=== PATIENT | female | born 1975 | race Two or more races ===

== ENCOUNTER 2020-12-17 20:13 | Emergency (ER) | payer SELFPAY ==
[~2020-12-17] VITALS: Ht 157.5 cm; Wt 70.0 kg
[2020-12-17 21:51] VITALS: BP 160/89
--- NOTE | 2020-12-17 21:55 | PHYS DOC ---
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 She is unsure about loss of consciousness but reports that she does not know what happened. She endorses a laceration on the back of her head from the trauma. She also endorses some anterior neck pain, jaw pain on both sides. Her Tdap is not up-to-date. She does not take any blood thinning medications. She denies any symptoms prior to the fall and reports that she missed a step and it was 100% mechanical. The patient denies nausea, vomiting, fever, chills, chest pain, shortness of breath, abdominal pain, urinary symptoms, cough, or any other complaints. Family is at the bedside and is translating. Review of Systems: Review of Systems: Review of systems is otherwise negative except for what was mentioned in the HPI Heart Score: C/O Chest Pain: No Allergies: Allergies: Allergies Coded Allergies Type Severity Reaction Last Updated Verified No Known Drug Allergies 12/17/20 No Physical Exam: PE: Constitutional: No acute distress, non-toxic appearance. HENT: 4 cm laceration to the midline posterior occiput, hemostatic. Bilateral mandibular tenderness. Eyes: PERRLA, EOMI, conjunctiva normal, no discharge. Neck: Normal range of motion, supple, no stridor. No C spinal tenderness Cardiovascular: Heart rate regular rhythm. 2+ radial pulses Lungs & Thorax: No respiratory distress, symmetrical expansion. Abdomen: Soft, no tenderness Skin: Warm, dry. Extremities: No tenderness, no cyanosis, ROM intact, no edema. Neurologic: Alert and oriented X 3, normal motor function, normal sensory function, no focal deficits noted. Non ataxic gait. GCS 15. Psychologic: Affect normal, judgment normal, mood normal. Current Patient Data: Vital Signs: Vital Signs Date Time Temp Pulse Resp B/P (MAP) Pulse Ox O2 Delivery O2 Flow Rate FiO2 12/17/20 21:51 98.9 78 16 160/89 (112) 98 Room Air 98.9 Radiology/Procedures: Radiology/Procedures: Laceration Repair Procedure Time: 2220 Confirmed: Patient, procedure, side, and site correct. Consent: Patient, has given verbal consent. Description/ repair Laceration: Location: Opposite. 4 cm in length. Shape: Linear. Depth: Superficial. Details: clean, no foreign material. Neurovascular/ tendon exam: intact. Anesthesia: 3 ml, 1% lidocaine, with epinephrine. Preparation: sterile field established. Irrigation: wound irrigated copiously with normal saline with pressure cap. Debridement: none. Skin closure: Myrtle Number of shania: 6 Complexity: single layer. Post procedure exam: Circulation, motor, sensory examination intact, Bleeding controlled. Complications: None. Patient tolerated: Well. Performed by: Carey Swartz DO. CT HEAD AND C-SPINE WO, CT MAXILLOFACIAL WITHOUT CONTRAST History: Reason: head trauma / Spl. Instructions: / History: . Pain Comparison: None. Technique: Noncontrast CT imaging was performed of the head, maxillofacial and cervical spine. Coronal and sagittal reconstructions were performed. Exposure: One or more of the following individualized dose reduction techniques were utilized for this examination: 1. Automated exposure control 2. Adjustment of the mA and/or kV according to patient size 3. Use of iterative reconstruction technique. Findings: Head CT: No intracranial hemorrhage. No mass effect. No hydrocephalus. Left posterior scalp soft tissue swelling with laceration and subcutaneous gas. Maxillofacial CT: No acute maxillofacial fracture. Orbits are unremarkable. Small left maxillary sinus mucous retention cyst. No acute calvarial fracture. Cervical spine CT: Normal vertebral body height. Normal alignment. No fracture. Soft tissues are unremarkable. Impression: Head CT: 1. No acute intracranial abnormality. 2. Left posterior scalp soft tissue injury. Maxillofacial CT: 1. No acute maxillofacial fracture. Cervical spine CT: 1. No acute fracture or subluxation of the cervical spine. Electronically signed by: Shoaib Baltazar DO (12/17/2020 10:52 PM) Course & Med Decision Making: Course & Med Decision Making Laceration repaired at bedside, scans look appropriate. Patient was discharged home with concussion precautions My Orders - CAREY SWARTZ DO Procedure Category Date Status Time Ct Maxillofacial Wo CT 12/17/20 Resulted Contrast 21:51 Lidocaine 1%/Epi PHA 12/17/20 Complete 1:100,000 (Lidocaine 22:30 Ct Head And Cervical CT 12/17/20 Resulted Spine Wo 21:51 Diph,Pertuss(Acell),Tet PHA 12/17/20 Complete Vac/Pf (Adacel T 22:30 Departure Departure Impression: Primary Impression: Occipital scalp laceration Disposition: HOME / SELF CARE / HOMELESS Condition: STABLE Referrals: NO PCP (PCP) Patient Instructions: Concussion and Brain Injury, [id number] Additional Instructions: You were seen in the emergency department for a headache after head trauma. Your CT scan did not show any acute fracture or bleeding. You most likely have a concussion. You should avoid any further head trauma or sports in the near future. If you continue to have symptoms you need to be evaluated by a primary care physician. You should return to the ED if you develop worsening pain, numbness, tingling, weakness, vomiting, vision change, or any other new or concerning symptoms. Do not continue with sports or physical activities until cleared by a primary care physician. You should be monitored at home with a family member for the next 24 hours. You were seen in the emergency department for a laceration, which was repaired with shania As with all lacerations, there is a chance that the laceration will leave a scar. You should wear sunscreen and/or vitamin E cream to help reduce scar formation over the wound. The laceration area may take weeks-months to heal completely and may not return to its full tensile strength. You may apply topical bacitracin or Neosporin over the wound if this helps soothe the area. It is OK to shower with the wound after your remove the dressing. Wounds can be gently cleansed with soap and water in the shower, but you should avoid soaking the wound or swimming, generally until after sutures are removed. Lacerations have a chance of infection, and you should return to the ER for a recheck if you have fever, warmth, redness, increased swelling, pus draining from the sutured wound, or any further concerns. Please go to your primary care physician, an urgent care, or return to the ED to have your shania removed in 7-10 days. CAREY SWARTZ DO Dec 17, 2020 21:55
[2020-12-17] MEDS ORDERED: LIDOCAINE 1%/EPI 1:100,000 20 ML VIAL. INJ ONE (22:30)
[2020-12-17] MEDS ORDERED: DIPH,PERTUSS(ACELL),TET VAC/PF 0.5 ML SYRINGE. VAX IM ONE (22:30)
--- NOTE | 2020-12-17 22:54 | RAD ---
CT HEAD AND C-SPINE WO, CT MAXILLOFACIAL WITHOUT CONTRAST History: Reason: head trauma / Spl. Instructions: / History: . Pain Comparison: None. Technique: Noncontrast CT imaging was performed of the head, maxillofacial and cervical spine. Mathews l and sagittal reconstructions were performed. Exposure: One or more of the following individualized dose reduction techniques were utilized for thi s examination: 1. Automated exposure control 2. Adjustment of the mA and/or kV according to patient size 3. Use of iterative reconstruction technique. Findings: Head CT: No intracranial hemorrhage. No mass effect. No hydrocephalus. Left posterior scalp soft tissue swelling with laceration and subcutaneous gas. Maxillofacial CT: No acute maxillofacial fracture. Orbits are unremarkable. Small left maxillary sinus mucous retention cyst. No acute calvarial fractur e. Cervical spine CT: Normal vertebral body height. Normal alignment. No fracture. Soft tissues are unremarkable. Impression: Head CT: 1. No acute intracranial abnormality. 2. Left posterior scalp soft tissue injury. Maxillofacial CT: 1. No acute maxillofacial fracture. Cervical spine CT: 1. No acute fracture or subluxation of the cervical spine. Electronically signed by: Shoaib Baltazar DO (12/17/2020 10:52 PM) [facility]
== END 2020-12-18 00:19 | disposition home or self-care (01) ==
LOC: ER 20:13
DX: S01.01XA Laceration without foreign body of scalp, initial encounter (principal); M54.2 Cervicalgia; R51.9 Headache, unspecified; R68.84 Jaw pain; W10.8XXA Fall (on) (from) other stairs and steps, initial encounter; Y93.89 Activity, other specified; Y92.89 Other specified places as the place of occurrence of the external cause; Y99.8 Other external cause status
CPT/HCPCS: 12002; 70450; 70486; 72125; 90471; 90715; 99285; J3490